=== PATIENT | female | born 1985 | race Caucasian/White ===

== ENCOUNTER 2016-06-03 19:42 | Emergency (ER) | payer OTHER ==
[~2016-06-03 19:42] MED LIST: COLACE 100MG C100 MG PO; IBUPROFEN600 MG PO
[2016-06-03 20:27] LABS: HEMOGLOBIN 15.3 gm/dl (12.3-15.3); RED BLOOD COUNT 5.01 M/UL (4.00-5.10); WHITE BLOOD COUNT 8.2 K/UL (4.5-11.0)
[2016-06-03 20:53] LABS: BUN/CREATININE RATIO 11 (0-10)
== END 2016-06-04 00:04 | disposition home or self-care (01) ==
LOC: ER1 19:42
PROVIDERS: Family Medicine
DX: H70.91 Unspecified mastoiditis, right ear (principal); R51 Headache; F17.200 Nicotine dependence, unspecified, uncomplicated; Z88.1 Allergy status to other antibiotic agents
CPT/HCPCS: 36415; 70450; 71020; 80053; 82550; 82553; 83874; 84484; 85025; 85610; 85730; 93005; 99284

== ENCOUNTER 2020-02-12 04:55 | Inpatient (IN) | payer OTHER ==
[~2020-02-12 04:55] MED LIST changes: +ANUSOL HC SUPP1 SUPP PR; +BENTYL 10MG CAP10 MG PO; +ERYTHROMYCIN O3.5 GM OU; +HYDROCODON-ACE1 EAC4 PO; +NORCO 5-325 TA1 EACH PO; +PROCTOFOAM 15 G15 GM PR; +ULTRAM50 MG PO; +ZOFRAN4 MG PO
[2020-02-12 05:42] LABS: HEMOGLOBIN 14.2 gm/dl (12.3-15.3); RED BLOOD COUNT 4.74 M/UL (4.00-5.10); WHITE BLOOD COUNT 12.5 K/UL (4.5-11.0)
[2020-02-13 02:29] LABS: HEMOGLOBIN 11.5 gm/dl (12.3-15.3)
== END 2020-02-13 15:39 | disposition home or self-care (01) | DRG 788 ==
LOC: OB 04:55
PROVIDERS: ADMIT Obstetrics & Gynecology
PROC: 3E033VJ Introduction of Other Hormone into Peripheral Vein, Percutaneous Approach (ICD-10-PCS; 2020-02-12)
PROC: 10907ZC Drainage of Amniotic Fluid, Therapeutic from Products of Conception, Via Natural or Artificial Opening (ICD-10-PCS; 2020-02-12)
PROC: 4A1HXCZ Monitoring of Products of Conception, Cardiac Rate, External Approach (ICD-10-PCS; 2020-02-12)
PROC: 3E0234Z Introduction of Serum, Toxoid and Vaccine into Muscle, Percutaneous Approach (ICD-10-PCS; 2020-02-12)
PROC: 10D00Z1 Extraction of Products of Conception, Low, Open Approach (ICD-10-PCS; principal; 2020-02-12 10:42)
DX: O69.2XX0 Labor and delivery complicated by other cord entanglement, with compression, not applicable or unspecified (principal); O69.0XX0 Labor and delivery complicated by prolapse of cord, not applicable or unspecified; O24.420 Gestational diabetes mellitus in childbirth, diet controlled; O99.334 Smoking (tobacco) complicating childbirth; F17.210 Nicotine dependence, cigarettes, uncomplicated; O99.344 Other mental disorders complicating childbirth; Z3A.39 39 weeks gestation of pregnancy; Z37.0 Single live birth; Z23 Encounter for immunization
CPT/HCPCS: 36415; 81001; 82800; 82962; 85014; 85018; 85025; 90715; C9113; J0690; J1885; J2250; J2270; J2274; J2405; J2590; J2765; J2795; J7120

== ENCOUNTER 2020-02-16 06:58 | Emergency (ER) | payer OTHER | END 2020-02-16 10:57 | disposition home or self-care (01) | LOC: ER1 06:58 | DX: O90.89 Other complications of the puerperium, not elsewhere classified (principal); R60.0 Localized edema; Z98.890 Other specified postprocedural states | CPT/HCPCS: 93971; 99284 ==

== ENCOUNTER 2021-02-22 18:36 | Emergency (ER) | payer OTHER | END 2021-02-22 18:48 | disposition left against medical advice (07) | LOC: ER1 18:36 | DX: Z53.21 Procedure and treatment not carried out due to patient leaving prior to being seen by health care provider (principal) ==